=== PATIENT | male | born 1990 | race Caucasian/White ===

== ENCOUNTER 2016-11-10 19:38 | Emergency (ER) | payer BC, OTHER ==
[~2016-11-10] VITALS: Ht 188 cm; Wt 119.1 kg
[2016-11-10 20:00] VITALS: TEMP 37.3; O2SAT 99; Ht 188 cm; Wt 119.1 kg
--- NOTE | 2016-11-10 20:12 | EMERGENCY ROOM VISIT NOTE ---
History Report prepared by Scribe: Rosibel Astudillo Under the Supervision of: Dr. Pastor Stanley D.O. First contact with patient: 19:40 Stated Complaint: ALCOHOL History of Present Illness The patient is a 26 year old male who presents to the Emergency Room with complaints of an alcohol overdose. He was brought to the ED via EMS. EMS reports he was found stumbling along [facility] this evening, holding a 16 pack of beer. The patient reports he is here to watch the [facility] with some friends of work. He admits to drinking alcohol today. He started drinking around 1330 this afternoon in the [place]. As he was walking to the game, he was picked up by police because he was stumbling. The patient denies any chronic medical problems. He states his brother is sober and can come pick him up. The patient denies any headache, change in vision, fevers, chest pain, shortness of breath, nausea, vomiting, diarrhea, and pain with urination. He does note that he always has an elevated heart rate. Source of History: patient Onset: RESEARCH TECH Position: other (global) Quality: other (ETOH overdose) Associated Symptoms: No fevers, No headache, No chest pain, No SOB, No nausea, No vomiting, No melena, No diarrhea, No urinary symptoms Review of Systems See HPI for pertinent positives & negatives. A total of 10 systems reviewed and were otherwise negative. Past Medical & Surgical Medical Problems: (1) No significant past medical history Social History Smokeless Tobacco Use: No Alcohol Use: occasionally Drug Use: none Marital Status: single Housing Status: lives with family Occupation Status: employed Current/Historical Medications Unable to Obtain Active Prescriptions or Reported Meds Physical Exam Vital Signs Date Time Temp Pulse Resp B/P (MAP) Pulse Ox O2 Delivery O2 Flow Rate FiO2 11/11/16 02:32 139/83 11/11/16 02:28 100 26 95 11/11/16 02:23 102 16 96 11/11/16 02:20 16 95 11/11/16 02:20 106 18 11/11/16 02:18 108 99 11/11/16 02:13 105 25 97 11/11/16 02:08 102 19 98 11/11/16 02:03 108 21 96 11/11/16 01:58 108 96 11/11/16 01:53 105 95 11/11/16 01:48 112 95 11/11/16 01:43 110 95 11/11/16 01:38 107 95 11/11/16 01:31 134/82 11/11/16 01:23 108 95 11/11/16 01:08 112 95 11/11/16 01:01 165/84 11/11/16 00:53 113 93 11/11/16 00:46 160/93 11/11/16 00:23 132 95 11/11/16 00:18 120 91 11/11/16 00:10 130 11/11/16 00:03 124 93 11/11/16 00:01 131/63 11/10/16 23:48 130 93 11/10/16 23:33 125 92 11/10/16 23:18 123 91 11/10/16 23:13 127 92 11/10/16 23:04 138/115 11/10/16 22:58 131 97 11/10/16 22:52 129 20 141/85 96 Room Air 11/10/16 22:43 136 94 11/10/16 22:38 133 92 11/10/16 22:00 141/85 11/10/16 21:38 142 95 11/10/16 21:01 148/83 11/10/16 20:38 137 94 11/10/16 20:07 130 11/10/16 20:01 166/107 11/10/16 20:00 100 Room Air 11/10/16 20:00 99 Room Air 11/10/16 20:00 37.3 135 20 166/107 99 Room Air 11/10/16 19:53 153/102 Physical Exam GENERAL: Patient is sitting up in bed, slurring words, in no acute distress and non-toxic HEAD: normal cephalic, atraumatic EYE EXAM: normal conjunctiva, PERRL and EOM's grossly intact OROPHARYNX: no exudate, no erythema, lips, buccal mucosa, and tongue normal and mucous membranes are moist NECK: supple, no nuchal rigidity, no adenopathy, non-tender CHEST: stable to compression anteriorly and posteriorly LUNGS: clear to auscultation. Normal chest wall mechanics HEART: Tachycardic heart rate, no murmurs, S1 normal and S2 normal ABDOMEN: abdomen soft, non-tender, normo-active bowel sounds, no masses, no rebound or guarding. PELVIS: stable to compression anteriorly and posteriorly BACK: Back is symmetrical on inspection and there is no deformity, no midline tenderness, no CVA tenderness. UPPER EXTREMITIES: full active and passive range of motion of all joints without tenderness to palpation LOWER EXTREMITIES: full active and passive range of motion of all joints without tenderness to palpation NEURO EXAM: Patient is awake and alert, following commands, slurring words, no focal deficits. Medical Decision & Procedures ER Provider Diagnostic Interpretation: Radiology results as stated below per my review and interpretation: CHEST X-RAY, PORTABLE UPRIGHT AP, 1 VIEW No focal infiltrates, no pneumothorax, normal cardiac silhouette. Laboratory Results 11/10/16 22:57 Red Blood Count 5.02, Mean Corpuscular Volume 86.9, Mean Corpuscular Hemoglobin 31.5, Mean Corpuscular Hemoglobin Concent 36.2, Mean Platelet Volume 9.8, Neutrophils (%) (Auto) 66.8, Lymphocytes (%) (Auto) 29.5, Monocytes (%) (Auto) 2.9, Eosinophils (%) (Auto) 0.4, Basophils (%) (Auto) 0.1, Neutrophils # (Auto) 6.24, Lymphocytes # (Auto) 2.76, Monocytes # (Auto) 0.27, Eosinophils # (Auto) 0.04, Basophils # (Auto) 0.01 11/10/16 20:03 Test 11/10/16 19:58 11/10/16 20:03 11/10/16 22:57 Bedside Glucose 113 mg/dl (70-99) Anion Gap 9.0 mmol/L (3-11) Est Creatinine Clear Calc Drug Dose 140.8 ml/min Estimated GFR () 107.6 Estimated GFR (Non- 92.8 BUN/Creatinine Ratio 11.3 (10-20) Calcium Level 9.2 mg/dl (8.5-10.1) Total Bilirubin 1.4 mg/dl (0.2-1) Direct Bilirubin 0.3 mg/dl (0-0.2) Aspartate Amino Transf (AST/SGOT) 23 U/L (15-37) Alanine Aminotransferase (ALT/SGPT) 30 U/L (12-78) Alkaline Phosphatase 67 U/L (45-117) Total Protein 8.2 gm/dl (6.4-8.2) Albumin 4.7 gm/dl (3.4-5.0) Thyroid Stimulating Hormone (TSH) 1.160 uIu/ml (0.300-4.500) Ethyl Alcohol mg/dL 319.0 mg/dl (0-3) White Blood Count 9.35 K/uL (4.8-10.8) Red Blood Count 5.02 M/uL (4.7-6.1) Hemoglobin 15.8 g/dL (14.0-18.0) Hematocrit 43.6 % (42-52) Mean Corpuscular Volume 86.9 fL (80-100) Mean Corpuscular Hemoglobin 31.5 pg (25-34) Mean Corpuscular Hemoglobin Concent 36.2 g/dl (32-36) Platelet Count 313 K/uL (130-400) Mean Platelet Volume 9.8 fL (7.4-10.4) Neutrophils (%) (Auto) 66.8 % Lymphocytes (%) (Auto) 29.5 % Monocytes (%) (Auto) 2.9 % Eosinophils (%) (Auto) 0.4 % Basophils (%) (Auto) 0.1 % Neutrophils # (Auto) 6.24 K/uL (1.4-6.5) Lymphocytes # (Auto) 2.76 K/uL (1.2-3.4) Monocytes # (Auto) 0.27 K/uL (0.11-0.59) Eosinophils # (Auto) 0.04 K/uL (0-0.5) Basophils # (Auto) 0.01 K/uL (0-0.2) RDW Standard Deviation 39.6 fL (36.4-46.3) RDW Coefficient of Variation 12.4 % (11.5-14.5) Immature Granulocyte % (Auto) 0.3 % Immature Granulocyte # (Auto) 0.03 K/uL (0.00-0.02) Laboratory results per my review. Medications Administered Medications (Trade) Dose Ordered Sig/Arnol Route Start Time Stop Time Status Last Admin Dose Admin Sodium Chloride 2,000 ml @ 999 mls/hr Q2H1M STAT IV 11/10/16 21:52 11/10/16 23:52 DC 11/10/16 21:52 999 MLS/HR ECG Indication: tachycardia Rate (beats per minute): 134 Rhythm: sinus tachycardia Findings: left axis deviation, other (normal intervals) ED Course ED COURSE: Vital signs were reviewed and showed the patient is tachycardic. The patients medical record was reviewed The above diagnostic studies were performed and reviewed. ED treatments and interventions as stated above. 1940: The patient was evaluated in room B4. A complete history and physical examination was performed. 2151: NSS 2000 ml @ 999 mls/hr IV. 0: I reevaluated the patient. His heart rate is in the 120s. 2328: I reevaluated the patient. He states his heart rate is always in the 110s. 2336: I reevaluated the patient. He is resting comfortably. 0036: Nursing informed me the patient is attempting to leave AMA. 0040: The patients brother is here. He has convinced him to stay. 0220: Upon reevaluation, the patient is feeling well and wants to go home. I discussed my findings with the patient and he understands and agrees with the treatment plan. Based on the patients age, coexisting illnesses, exam and lab findings the decision to treat as an outpatient was made. The patient remained stable while under my care. The patient appeared well at the time of discharge. Medical Decision Differential diagnosis includes etiologies such as alcohol intoxication, toxicologic, infection, hypoglycemia, electrolyte abnormalities, cardiac sources , intracerebral event, neurologic, as well as others were entertained. Patient is a 25-year-old male who presents to ER who came to [facility] with a bunch of his work buddies. He was picked up by police downtown and brought in by EMS as he was stumbling. No falls. No trauma. He admits to drinking slightly over 12 beers today since 1 PM. He was drinking [place]. He denies any medical problems. He does think that he has sober friend that can pick him up. He has no other complaints at this time. No obvious external signs trauma. CBC able BMP, LFTs and TSH were unremarkable. Bilirubin was slightly elevated. Alcohol was 320. Blood work was done as patient remained persistently tachycardic in the ER. Chest x-ray and EKG were unremarkable. Patient was given 2 L of fluid and following hydration heart rate trended down to 90s to 110. Patient was able to carry a full conversation. Able to ambulate without difficulty. Brother was present who is sober and able to take the patient home. Discussed with Pt concerning signs and symptoms to watch out for. Pt was instructed to follow up with their PCP and discussed with the patient their option to return to the ED at anytime for persistent or worsening symptoms. The appropriate anticipatory guidance and out-patient management, including indications for return to the emergency department, were explained at length to the patient and understood. Medication Reconcilliation Current Medication List: was personally reviewed by me Blood Pressure Screening Patient's blood pressure: Normal blood pressure Blood pressure disposition: Did not require urgent referral Impression Primary Impression: Alcohol intoxication Additional Impression: Alcohol abuse Scribe Attestation The scribe's documentation has been prepared under my direction and personally reviewed by me in its entirety. I confirm that the note above accurately reflects all work, treatment, procedures, and medical decision making performed by me. Departure Information Dispostion Home / Self-Care Prescriptions Unable to Obtain Active Prescriptions or Reported Meds Patient Instructions ED Alcohol Abuse, My [facility] Additional Instructions Please follow up with your primary care doctor with in the next 24 hours. Any worsening of your symptoms, please return to the ED immediately. This includes any fevers greater than 100.4, chest pain, shortness breath, persistent nausea, vomiting, unable to eat or drink, or any other concerning signs or symptoms from your standpoint. Absolutely no driving for the next 12 hours. He should be monitored closely overnight to make sure he has no trouble breathing or persistent vomiting. Problem Qualifiers Primary Impression: Alcohol intoxication Complication of substance-induced condition: uncomplicated Qualified Codes: F10.920 - Alcohol use, unspecified with intoxication, uncomplicated
[2016-11-10 21:01] LABS: BUN/CREATININE RATIO 11.3 (10-20); CALCIUM 9.2 mg/dl (8.5-10.1); CREATININE 1.1 mg/dl (0.60-1.40); POTASSIUM 3.3 mmol/L (3.5-5.1)
[2016-11-10] MEDS ORDERED: SODIUM CHLORIDE 0.9% 1000ML 2,000 ML IV STA (21:52)
[2016-11-10 23:15] LABS: BASO % 0.1 %; BASO ABS # 0.01 K/uL (0-0.2); COMPLETE YES; EOS % 0.4 %; HEMATOCRIT 43.6 % (42-52); IG% 0.3 %; LYMPH % 29.5 %; LYMPH ABS # 2.76 K/uL (1.2-3.4); MEAN CELL VOLUME 86.9 fL (80-100); MEAN CORPUSCULAR HEMOGLOBIN 31.5 pg (25-34); MEAN CORPUSCULAR HGB CONC 36.2 g/dl (32-36); MEAN PLATELET VOLUME 9.8 fL (7.4-10.4); MONO % 2.9 %; NEUT % 66.8 %; PLATELET COUNT 313 K/uL (130-400); RED BLOOD COUNT 5.02 M/uL (4.7-6.1); WHITE BLOOD COUNT 9.35 K/uL (4.8-10.8)
[2016-11-10 23:32] LABS: THYROID STIMULATING HORMONE 1.16 uIu/ml (0.300-4.500)
[2016-11-11 02:28] VITALS: PULSE 100; O2SAT 95
[2016-11-11 02:32] VITALS: BP 139/83
--- NOTE | 2016-11-11 05:58 | DIAGNOSTIC IMAGING REPORT ---
CHEST ONE VIEW PORTABLE CLINICAL HISTORY: 25 years-old Male presenting with tachy. TECHNIQUE: Portable upright AP view of the chest was obtained. COMPARISON: None. FINDINGS: Cardiomediastinal silhouette normal. Lungs and pleural spaces clear. Osseous structures normal. Upper abdomen normal. IMPRESSION: 1. No acute cardiopulmonary disease. Electronically signed by: Abdi Fraga M.D. 11/11/2016 5:57 AM Dictated Date/Time: 11/11/2016 5:57 AM
== END 2016-11-11 02:34 | disposition home or self-care (01) ==
LOC: C.EDB 19:40
DX: F10.129 Alcohol abuse with intoxication, unspecified (principal)